=== PATIENT | male | born 1975 | race Caucasian/White ===

== ENCOUNTER 2023-09-27 14:21 | Inpatient (IN) | payer MEDICAID ==
[2023-09-27] VITALS (21 sets, daily range): BP systolic 87–110; BP diastolic 47–67; PULSE 84–107; RESP 11–26; TEMP 99.6; O2SAT 91–100
[~2023-09-27] VITALS: Ht 177.8 cm; Wt 93.5 kg
[2023-09-27 15:33] LABS: BASOPHILS % (AUTO) 0.2 % (0-1); EOSINOPHILS % (AUTO) 0.2 % (0-6); HEMATOCRIT 47.1 % (42.0-52.0); HEMOGLOBIN 15.6 g/dl (14.0-17.9); LYMPHOCYTES # (AUTO) 2.2 X10'3 (1.1-4.8); LYMPHOCYTES % (AUTO) 11.7 % (21-51); MEAN CORPUSCULAR HEMOGLOBIN 30.4 PG (27.0-31.0); MEAN CORPUSCULAR HGB CONC 33.2 g/dL (33.0-36.5); MEAN CORPUSCULAR VOLUME 91.5 FL (78-98); MEAN PLATELET VOLUME 8.9 FL (7.4-10.4); MONOCYTES # (AUTO) 2.4 X10'3 (0-0.9); NEUTROPHILS # (AUTO) 13.8 X10'3 (1.8-7.7); NEUTROPHILS % (AUTO) 74.9 % (42-75); PLATELET COUNT 370 X10'3 (140-440); RED BLOOD COUNT 5.15 X10'6 (4.70-6.10); RED CELL DISTRIBUTION WIDTH 13.6 % (11.5-14.5); WHITE BLOOD COUNT 18.5 X10'3 (4.5-11.0)
[2023-09-27 15:41] LABS: ALANINE AMINOTRANSFERASE 28 U/L (12-78); ALBUMIN 3.4 G/DL (3.4-5.0); ALBUMIN/GLOBULIN RATIO 0.7 (1.1-1.5); ALKALINE PHOSPHATASE 176 IU/L (46-116); ANION GAP 7 (8-16); ASPARTATE AMINO TRANSFERASE 20 U/L (10-37); BILIRUBIN,TOTAL 0.8 MG/DL (0.1-1.0); BLOOD UREA NITROGEN 13 MG/DL (7-18); BUN/CREATININE RATIO 8.7 (10.0-20.0); CALCIUM 9.3 MG/DL (8.5-10.1); CHLORIDE 94 MMOL/L (99-107); GLUCOSE 105 MG/DL (70-104); POTASSIUM 3.9 MMOL/L (3.5-5.1); SODIUM 129 MMOL/L (135-145); TOTAL CARBON DIOXIDE 28.3 MMOL/L (24-32); TOTAL PROTEIN 8.5 G/DL (6.4-8.2); eCRCL 63 ML/MIN; eGFR 50 ML/MIN
[2023-09-27] MEDS ORDERED: iohexol 300mg/ml 100ml inj. ONE (15:54)
[2023-09-27] MEDS ORDERED: normal saline 1000ml 1,000 ML IV ONE (16:15)
[2023-09-27] MEDS ORDERED: VANCOmycin 2,000MG in NS 500ml IV soln IV ONE (16:15)
[2023-09-27 16:22] LABS: TOTAL CELLS COUNTED 100
[2023-09-27 16:23] LABS: PLATELET ESTIMATE NORMAL
[2023-09-27] MEDS ORDERED: BUPIVAcaine 2.5mg/ml inj 50ml vial (contains preservative) ONE (18:12)
[2023-09-27] MEDS ORDERED: ringers solution, lacted 1,000 ML IV SCH (18:40)
[2023-09-27] MEDS ORDERED: morphine 4 MG/ML inj SYRINge IV PRN (18:40)
[2023-09-27] MEDS ORDERED: morphine 2 MG/ML inj. syringe IV PRN (18:40)
[2023-09-27] MEDS ORDERED: ondansetron/PF 4mg/2ml inj IV PRN ×2 (18:40→19:50)
[2023-09-27] MEDS ORDERED: hydrALAZINE 20mg/ml inj. IV PRN (18:40)
[2023-09-27] MEDS ORDERED: fentaNYL/PF 50MCG/1 ML 2ML syringe IV PRN ×2 (18:40)
[2023-09-27] MEDS ORDERED: labetalol 20mg/4ml (5mg/ml) syringe IV PRN (18:40)
[2023-09-27] MEDS ORDERED: MIDAZolam 1 MG/ML 5ML VIAL ONE (18:41)
[2023-09-27] MEDS ORDERED: acetaminophen 1,000mg/100ml IV 100 ML IV STA (19:34)
[2023-09-27] MEDS ORDERED: potassium Cl 40MEQ/1/2NS 520ml 520 ML IV PRN (19:50)
[2023-09-27] MEDS ORDERED: magnesium 4gm in 100ml NS 100 ML IV PRN (19:50)
[2023-09-27] MEDS ORDERED: magnesium hydroxide 30ml (MOM) UD suspension PO PRN (19:50)
[2023-09-27] MEDS ORDERED: HYDROmorphone/PF 0.2 MG/ML SYRINGE IV PRN (19:50)
[2023-09-27] MEDS ORDERED: magnesium 2GM in 50ml NS 50 ML IV PRN (19:50)
[2023-09-27] MEDS ORDERED: mag hydrox/Alum hydrox/simeth 30ml oral suspension PO PRN (19:50)
[2023-09-27] MEDS ORDERED: albuterol 2.5 MG/3 ML nebule NEB PRN (19:50)
[2023-09-27] MEDS ORDERED: potassium Cl 20 mEq SR tablet PO PRN ×2 (19:50)
[2023-09-27] MEDS ORDERED: ipratropium/albuterol 3ml nebule NEB PRN (19:50)
[2023-09-27] MEDS ORDERED: acetaminophen 325mg tablet PO PRN (19:50)
[2023-09-27] MEDS: docusate sod 100mg capsule PO SCH (20:00)
[2023-09-27] MEDS ORDERED: VANCOMYCIN 1,500MG inj. 1,500 MG in normal saline 500ml IV soln 300 ML IV SCH (20:00)
[2023-09-27 20:05] LABS: BASOPHILS # (AUTO) 0.1 X10'3 (0-0.2); BASOPHILS % (AUTO) 0.3 % (0-1); EOSINOPHILS # (AUTO) 0.1 X10'3 (0-0.9); EOSINOPHILS % (AUTO) 0.4 % (0-6); HEMATOCRIT 38.8 % (42.0-52.0); HEMOGLOBIN 12.6 g/dl (14.0-17.9); LYMPHOCYTES # (AUTO) 2.1 X10'3 (1.1-4.8); LYMPHOCYTES % (AUTO) 12.2 % (21-51); MEAN CORPUSCULAR HEMOGLOBIN 30.2 PG (27.0-31.0); MEAN CORPUSCULAR HGB CONC 32.6 g/dL (33.0-36.5); MEAN CORPUSCULAR VOLUME 92.7 FL (78-98); MEAN PLATELET VOLUME 8.6 FL (7.4-10.4); MONOCYTES # (AUTO) 2.3 X10'3 (0-0.9); NEUTROPHILS # (AUTO) 12.8 X10'3 (1.8-7.7); NEUTROPHILS % (AUTO) 74.1 % (42-75); PLATELET COUNT 297 X10'3 (140-440); RED BLOOD COUNT 4.18 X10'6 (4.70-6.10); RED CELL DISTRIBUTION WIDTH 13.7 % (11.5-14.5); WHITE BLOOD COUNT 17.3 X10'3 (4.5-11.0)
[2023-09-27] MEDS: CLINDAMYCIN 600mg IN NS 50ML 50 ML IV SCH (20:05)
[2023-09-27] MEDS: normal saline 1000ml 1,000 ML IV SCH (20:06)
[2023-09-27 20:14] LABS: ALANINE AMINOTRANSFERASE 17 U/L (12-78); ALBUMIN 2.5 G/DL (3.4-5.0); ALBUMIN/GLOBULIN RATIO 0.7 (1.1-1.5); ALKALINE PHOSPHATASE 127 IU/L (46-116); ANION GAP 7 (8-16); ASPARTATE AMINO TRANSFERASE 18 U/L (10-37); BILIRUBIN,TOTAL 0.7 MG/DL (0.1-1.0); BLOOD UREA NITROGEN 11 MG/DL (7-18); BUN/CREATININE RATIO 8.1 (10.0-20.0); CALCIUM 7.7 MG/DL (8.5-10.1); CHLORIDE 99 MMOL/L (99-107); CREATININE 1.36 MG/DL (0.60-1.10); GLUCOSE 94 MG/DL (70-104); SODIUM 133 MMOL/L (135-145); TOTAL CARBON DIOXIDE 26.9 MMOL/L (24-32); TOTAL PROTEIN 6.2 G/DL (6.4-8.2); eCRCL 69 ML/MIN; eGFR 56 ML/MIN
[2023-09-27 20:16] LABS: POTASSIUM 4.6 MMOL/L (3.5-5.1)
[2023-09-27] MEDS: K and/or MAG REPLACEMENT MC SCH (22:00)
[2023-09-27] MEDS: HYDROmorphone inj. 0.5 MG/0.5 ML DISP.SYRIN IV PRN (23:27)
[2023-09-28] VITALS (8 sets, daily range): BP systolic 92–104; BP diastolic 57–68; PULSE 76–96; RESP 13–20; TEMP 98.7–99.9; O2SAT 95–99
[2023-09-28] MEDS: piperacillin/tazo 4.5gm/100ml 100 ML IV SCH ×4 (00:13→23:46)
[2023-09-28] MEDS: CLINDAMYCIN 600mg IN NS 50ML 50 ML IV SCH (01:18)
[2023-09-28] MEDS: HYDROmorphone inj. 0.5 MG/0.5 ML DISP.SYRIN IV PRN ×2 (05:14→10:23)
[2023-09-28] MEDS ORDERED: clindamycin 600mg/D5W 50ml 50 ML IV SCH (07:12)
[2023-09-28 07:22] LABS: BASOPHILS % (AUTO) 0.2 % (0-1); EOSINOPHILS # (AUTO) 0.1 X10'3 (0-0.9); EOSINOPHILS % (AUTO) 0.7 % (0-6); HEMATOCRIT 37.6 % (42.0-52.0); HEMOGLOBIN 12.2 g/dl (14.0-17.9); LYMPHOCYTES # (AUTO) 1.5 X10'3 (1.1-4.8); LYMPHOCYTES % (AUTO) 9.9 % (21-51); MEAN CORPUSCULAR HEMOGLOBIN 29.8 PG (27.0-31.0); MEAN CORPUSCULAR HGB CONC 32.5 g/dL (33.0-36.5); MEAN CORPUSCULAR VOLUME 91.9 FL (78-98); MEAN PLATELET VOLUME 8.7 FL (7.4-10.4); MONOCYTES # (AUTO) 1.7 X10'3 (0-0.9); MONOCYTES % (AUTO) 11.2 % (2-12); NEUTROPHILS # (AUTO) 11.6 X10'3 (1.8-7.7); PLATELET COUNT 289 X10'3 (140-440); RED BLOOD COUNT 4.09 X10'6 (4.70-6.10); RED CELL DISTRIBUTION WIDTH 13.6 % (11.5-14.5); WHITE BLOOD COUNT 14.9 X10'3 (4.5-11.0)
[2023-09-28 07:45] LABS: ALANINE AMINOTRANSFERASE 24 U/L (12-78); ALBUMIN 2.2 G/DL (3.4-5.0); ALBUMIN/GLOBULIN RATIO 0.6 (1.1-1.5); ALKALINE PHOSPHATASE 124 IU/L (46-116); ANION GAP 5 (8-16); ASPARTATE AMINO TRANSFERASE 21 U/L (10-37); BILIRUBIN,TOTAL 0.7 MG/DL (0.1-1.0); BLOOD UREA NITROGEN 11 MG/DL (7-18); CALCIUM 7.7 MG/DL (8.5-10.1); CHLORIDE 99 MMOL/L (99-107); CREATININE 1.22 MG/DL (0.60-1.10); GLUCOSE 116 MG/DL (70-104); MAGNESIUM 1.7 MG/DL (1.5-2.4); SODIUM 129 MMOL/L (135-145); TOTAL CARBON DIOXIDE 25.4 MMOL/L (24-32); TOTAL PROTEIN 5.7 G/DL (6.4-8.2); eCRCL 77 ML/MIN; eGFR 64 ML/MIN
[2023-09-28] MEDS: vancomycin/NS 1 GM ADD-VANTAGE 250 ML IV SCH ×2 (10:25→19:20)
[2023-09-28] MEDS: normal saline 1000ml 1,000 ML IV SCH ×2 (10:37→17:54)
[2023-09-28] MEDS: docusate sod 100mg capsule PO SCH ×2 (10:37→19:15)
[2023-09-28] MEDS: K and/or MAG REPLACEMENT MC SCH ×2 (10:48→19:15)
[2023-09-28 13:34] LABS: HEMOGLOBIN A1C 5.7 % (4.5-6.2)
[2023-09-28 13:35] LABS: CREATINE KINASE 96 U/L (39-308)
[2023-09-28] MEDS ORDERED: HYDROcodone/acetaminophen 5mg/325mg tablet PO PRN (17:45)
[2023-09-28] MEDS: HYDROcodone/acetaminophen 5mg/325mg tablet PO PRN (17:51)
[2023-09-28] MEDS: heparin, porcine 5000 units/ml vial SQ SCH (19:21)
[2023-09-29] VITALS (9 sets, daily range): BP systolic 95–111; BP diastolic 57–70; PULSE 74–83; RESP 12–20; TEMP 97.6–98.8; O2SAT 96–100
[2023-09-29] MEDS: normal saline 1000ml 1,000 ML IV SCH ×2 (01:50→11:50)
[2023-09-29 07:19] LABS: BASOPHILS % (AUTO) 0.3 % (0-1); EOSINOPHILS # (AUTO) 0.2 X10'3 (0-0.9); EOSINOPHILS % (AUTO) 1.5 % (0-6); HEMATOCRIT 39.6 % (42.0-52.0); HEMOGLOBIN 13.1 g/dl (14.0-17.9); LYMPHOCYTES # (AUTO) 1.4 X10'3 (1.1-4.8); LYMPHOCYTES % (AUTO) 13.3 % (21-51); MEAN CORPUSCULAR HEMOGLOBIN 30.3 PG (27.0-31.0); MEAN CORPUSCULAR HGB CONC 32.9 g/dL (33.0-36.5); MEAN PLATELET VOLUME 8.2 FL (7.4-10.4); MONOCYTES # (AUTO) 1.4 X10'3 (0-0.9); MONOCYTES % (AUTO) 13.2 % (2-12); NEUTROPHILS # (AUTO) 7.5 X10'3 (1.8-7.7); NEUTROPHILS % (AUTO) 71.7 % (42-75); PLATELET COUNT 331 X10'3 (140-440); RED BLOOD COUNT 4.31 X10'6 (4.70-6.10); RED CELL DISTRIBUTION WIDTH 13.9 % (11.5-14.5); WHITE BLOOD COUNT 10.5 X10'3 (4.5-11.0)
[2023-09-29 07:39] LABS: ALANINE AMINOTRANSFERASE 32 U/L (12-78); ALBUMIN 2.3 G/DL (3.4-5.0); ALBUMIN/GLOBULIN RATIO 0.6 (1.1-1.5); ALKALINE PHOSPHATASE 127 IU/L (46-116); ANION GAP 4 (8-16); ASPARTATE AMINO TRANSFERASE 21 U/L (10-37); BILIRUBIN,TOTAL 0.5 MG/DL (0.1-1.0); BLOOD UREA NITROGEN 6 MG/DL (7-18); BUN/CREATININE RATIO 5.2 (10.0-20.0); CALCIUM 8.2 MG/DL (8.5-10.1); CHLORIDE 102 MMOL/L (99-107); CREATININE 1.16 MG/DL (0.60-1.10); GLUCOSE 109 MG/DL (70-104); POTASSIUM 3.9 MMOL/L (3.5-5.1); SODIUM 134 MMOL/L (135-145); TOTAL CARBON DIOXIDE 27.9 MMOL/L (24-32); TOTAL PROTEIN 6.3 G/DL (6.4-8.2); eCRCL 81 ML/MIN; eGFR 67 ML/MIN
[2023-09-29] MEDS: K and/or MAG REPLACEMENT MC SCH ×2 (08:00→19:13)
[2023-09-29] MEDS: docusate sod 100mg capsule PO SCH ×2 (09:22→19:51)
[2023-09-29] MEDS: piperacillin/tazo 4.5gm/100ml 100 ML IV SCH ×2 (09:22→16:35)
[2023-09-29] MEDS: vancomycin/NS 1 GM ADD-VANTAGE 250 ML IV SCH (09:22)
[2023-09-29] MEDS: heparin, porcine 5000 units/ml vial SQ SCH ×2 (09:45→19:51)
[2023-09-29] MEDS ORDERED: VANCOMYCIN 1,500MG in normal saline IV soln 300 ML IV SCH ×2 (10:00→21:00)
[2023-09-29] MEDS: HYDROmorphone inj. 0.5 MG/0.5 ML DISP.SYRIN IV PRN (11:21)
[2023-09-29] MEDS ORDERED: VANCOMYCIN LEVEL IV ONE (19:30)
[2023-09-30] MEDS: piperacillin/tazo 4.5gm/100ml 100 ML IV SCH ×2 (00:11→09:05)
[2023-09-30 06:00] VITALS: BP 122/88; PULSE 70; RESP 20; TEMP 98; O2SAT 93
[2023-09-30 06:22] LABS: BASOPHILS % (AUTO) 0.4 % (0-1); EOSINOPHILS # (AUTO) 0.3 X10'3 (0-0.9); EOSINOPHILS % (AUTO) 2.6 % (0-6); HEMATOCRIT 42.1 % (42.0-52.0); LYMPHOCYTES # (AUTO) 1.9 X10'3 (1.1-4.8); LYMPHOCYTES % (AUTO) 19.2 % (21-51); MEAN CORPUSCULAR HEMOGLOBIN 30.6 PG (27.0-31.0); MEAN CORPUSCULAR HGB CONC 33.2 g/dL (33.0-36.5); MEAN PLATELET VOLUME 8.3 FL (7.4-10.4); MONOCYTES # (AUTO) 1.1 X10'3 (0-0.9); MONOCYTES % (AUTO) 10.6 % (2-12); NEUTROPHILS # (AUTO) 6.8 X10'3 (1.8-7.7); NEUTROPHILS % (AUTO) 67.2 % (42-75); PLATELET COUNT 420 X10'3 (140-440); RED BLOOD COUNT 4.57 X10'6 (4.70-6.10); RED CELL DISTRIBUTION WIDTH 13.6 % (11.5-14.5); WHITE BLOOD COUNT 10.1 X10'3 (4.5-11.0)
[2023-09-30 06:45] LABS: ALANINE AMINOTRANSFERASE 63 U/L (12-78); ALBUMIN 2.6 G/DL (3.4-5.0); ALBUMIN/GLOBULIN RATIO 0.6 (1.1-1.5); ALKALINE PHOSPHATASE 134 IU/L (46-116); ANION GAP 9 (8-16); ASPARTATE AMINO TRANSFERASE 46 U/L (10-37); BILIRUBIN,TOTAL 0.4 MG/DL (0.1-1.0); BLOOD UREA NITROGEN 7 MG/DL (7-18); BUN/CREATININE RATIO 6.2 (10.0-20.0); CALCIUM 9.1 MG/DL (8.5-10.1); CHLORIDE 100 MMOL/L (99-107); CREATININE 1.13 MG/DL (0.60-1.10); GLUCOSE 101 MG/DL (70-104); MAGNESIUM 2.3 MG/DL (1.5-2.4); POTASSIUM 4.2 MMOL/L (3.5-5.1); SODIUM 135 MMOL/L (135-145); TOTAL CARBON DIOXIDE 26.1 MMOL/L (24-32); TOTAL PROTEIN 7.2 G/DL (6.4-8.2); eCRCL 83 ML/MIN; eGFR 69 ML/MIN
[2023-09-30] MEDS: docusate sod 100mg capsule PO SCH (08:00)
[2023-09-30] MEDS: K and/or MAG REPLACEMENT MC SCH (08:00)
[2023-09-30] MEDS: heparin, porcine 5000 units/ml vial SQ SCH (09:06)
[2023-09-30 09:20] VITALS: RESP 13; O2SAT 99
[2023-09-30 10:00] VITALS: BP 102/59; PULSE 81; RESP 16; TEMP 97.3; O2SAT 95
[2023-09-30] MEDS ORDERED: AMOX-580 PO (13:01)
[2023-09-30] MEDS ORDERED: HYDR-3965 PO (13:01)
[2023-09-30] MEDS: HYDROcodone/acetaminophen 5mg/325mg tablet PO PRN (14:42)
[2023-09-30 14:58] VITALS: PULSE 71; RESP 16; O2SAT 98
[2023-09-30 15:42] VITALS: RESP 17
[2023-10-01] MEDS ORDERED: VANCOMYCIN LEVEL IV ONE (08:30)
== END 2023-09-30 16:25 | disposition home or self-care (01) | DRG 710 ==
LOC: ER 14:23 → ED HOLD 19:55 → ORTHO 4S 21:43
PROVIDERS: ADMIT Family Medicine; ATTEND Internal Medicine
PROC: 0J9L0ZZ Drainage of Right Upper Leg Subcutaneous Tissue and Fascia, Open Approach (ICD-10-PCS; principal; 2023-09-27 18:37)
DX: A41.9 Sepsis, unspecified organism (principal); N17.0 Acute kidney failure with tubular necrosis; L02.415 Cutaneous abscess of right lower limb; E44.0 Moderate protein-calorie malnutrition; E87.1 Hypo-osmolality and hyponatremia; L03.115 Cellulitis of right lower limb; B95.5 Unspecified streptococcus as the cause of diseases classified elsewhere; E86.0 Dehydration; Z82.49 Family history of ischemic heart disease and other diseases of the circulatory system; Z87.891 Personal history of nicotine dependence; R65.20 Severe sepsis without septic shock; Z68.29 Body mass index [BMI] 29.0-29.9, adult
CPT/HCPCS: 36415; 71045; 73701; 80053; 80202; 82550; 83036; 83605; 83735; 84145; 85007; 85025; 87040; 87070; 87075; 87077; 87081; 87186; 94760; 97116; 97161; 97530; 99285; A4615; A4618; A6253; A6258; A6266; A6446; A7000; G0378; J0131; J1170; J1644; J2250; J2543; J3370; J3490; J7030; J7040; J7120; Q9967